=== PATIENT | female | born 1955 | race Caucasian/White ===

== ENCOUNTER 2024-04-10 20:09 | Inpatient (IN) | payer MEDICARE ==
[~2024-04-10] VITALS: Ht 170.2 cm; Wt 86.0 kg
[2024-04-10 20:50] VITALS: BP 124/58
[2024-04-10 21:00] LABS: BASO % 0.3 % (0.0-1.0); EOS # 0.1 10^3/uL (0.0-0.5); EOS % 1.4 % (0.0-3.0); HEMATOCRIT 41.2 % (36.0-47.0); HEMOGLOBIN 13.6 g/dl (12.0-15.5); LYMPH # 2.6 10^3/uL (1.5-5.0); LYMPH % 29.5 % (24.0-44.0); MEAN CORPUSCULAR HEMOGLOBIN 29.8 pg (27.0-33.0); MEAN CORPUSCULAR VOLUME 90.2 fl (80.0-96.0); MONO # 0.4 10^3/uL (0.0-0.8); MONO % 4.4 % (2.0-8.0); NEUTROPHILS # 5.5 10^3/uL (1.5-8.5); NEUTROPHILS % 64.1 % (36.0-66.0); PLATELET COUNT, AUTOMATED 268 10^3/uL (150-450); RED BLOOD COUNT 4.57 10^6/uL (4.00-5.40); WHITE BLOOD COUNT 8.7 10^3/uL (4.0-10.0)
[2024-04-10 21:18] LABS: INR 1.03; PARTIAL THROMBOPLASTIN TIME 21.3 SECONDS (24.8-34.2); PROTHROMBIN TIME 13.2 SECONDS (12.5-14.5)
[2024-04-10 21:26] LABS: BLOOD UREA NITROGEN 14 MG/DL (9-23); CARBON DIOXIDE LEVEL 26 MMOL/L (20-31); CHLORIDE LEVEL 107 MMOL/L (98-107); CPK CREATINE PHOSPHOKINASE 86 U/L (34-145); GLOMERULAR FILTRATION RATE > 60.0 (>39); GLUCOSE, FASTING 176 MG/DL (74-106); MB/CK RELATIVE INDEX 1.16 (< OR =4); POTASSIUM SERUM 3.8 MMOL/L (3.5-5.1); SODIUM LEVEL 139 MMOL/L (136-145)
[2024-04-11] MEDS ORDERED: MM S100C PO (00:55)
[2024-04-11] MEDS ORDERED: METO1TAB87 PO (00:55)
[2024-04-11] MEDS ORDERED: VITA200010 PO (00:55)
[2024-04-11] MEDS ORDERED: FLEC25TA PO (00:55)
[2024-04-11] MEDS ORDERED: LISI20TA33 PO (00:55)
[2024-04-11] MEDS ORDERED: LEVO125T4 PO (00:55)
[2024-04-11] MEDS ORDERED: ASPI81CH33 PO (00:55)
[2024-04-11] MEDS: ASPIRIN 81MG CHEW TABLET PO ONE (00:59)
[2024-04-11] MEDS ORDERED: SYNT125T PO (03:17)
[2024-04-11] MEDS ORDERED: DOCU100C16 PO (03:17)
[2024-04-11] MEDS ORDERED: FLEC50HA PO (03:17)
[2024-04-11] MEDS ORDERED: ASPI-615 PO (03:17)
[2024-04-11] MEDS ORDERED: METO25TA4 PO (03:17)
[2024-04-11] MEDS ORDERED: MED REC IN PROGRESS XX SCH (03:25)
[2024-04-11 08:31] LABS: HEMOGLOBIN A1c 5.3 % (4.0-6.0)
[2024-04-11] MEDS: NS 1,000 ML IV ONE (08:46)
[2024-04-11 09:04] LABS: CHOLESTEROL LEVEL 186 MG/DL (<200); CHOLESTEROL RISK RATIO 2.91 (<5); CK-MB VALUE MASS < 1.0 NG/ML (<3.6); CPK CREATINE PHOSPHOKINASE 63 U/L (34-145); HDL CHOLESTEROL 63.9 MG/DL (>40); LDL CHOLESTEROL 108.3 MG/DL (<100); MB/CK RELATIVE INDEX 1.58 (< OR =4); NON-HDL-C 122.1 MG/DL; TRIGLYCERIDES LEVEL 69 MG/DL (<150)
[2024-04-11] MEDS: ASPIRIN 81MG ENTERIC TABLET PO SCH (09:04)
[2024-04-11] MEDS: DOCUSATE SODIUM 100MG CAPSULE PO SCH (09:04)
[2024-04-11] MEDS: METOPROLOL TART 12.5 MG PER 1/2 TAB PO SCH (09:05)
[2024-04-11 09:06] LABS: FREE T3 2.7 PG/ML (2.3-4.2); FREE T4 1.12 NG/DL (0.89-1.76)
[2024-04-11] MEDS: FLECAINIDE 50MG TABLET PO SCH (10:20)
[2024-04-11] MEDS ORDERED: HOME MED LIST COMPLETE! XX SCH (10:55)
[2024-04-11 11:45] VITALS: BP 151/70; TEMP 98.2; O2SAT 99
[2024-04-11 20:00] VITALS: BP 158/73; TEMP 97; O2SAT 98
[2024-04-11] MEDS ORDERED: ACETAMINOPHEN TAB 650MG DOSE (2X325MG) PO PRN (22:05)
[2024-04-11] MEDS: KETOROLAC 30 MG/ML 1ML VIAL IV ONE (22:11)
[2024-04-11] MEDS: ENOXAPARIN 40MG/0.4ML SYRINGE (J1650 PER 10MG) SC SCH (22:13)
[2024-04-12 04:00] VITALS: BP 131/66; TEMP 97.3; O2SAT 96
[2024-04-12 05:56] LABS: HEMATOCRIT 39.3 % (36.0-47.0); HEMOGLOBIN 12.8 g/dl (12.0-15.5); MEAN CORPUSCULAR HEMOGLOBIN 29.5 pg (27.0-33.0); MEAN CORPUSCULAR HGB CONC 32.6 g/dl (32.0-36.5); MEAN CORPUSCULAR VOLUME 90.6 fl (80.0-96.0); PLATELET COUNT, AUTOMATED 240 10^3/uL (150-450); RED BLOOD COUNT 4.34 10^6/uL (4.00-5.40); WHITE BLOOD COUNT 7.3 10^3/uL (4.0-10.0)
[2024-04-12] MEDS: LEVOTHYROXINE 125MCG TABLET (0.125MG) PO SCH (06:16)
[2024-04-12 06:24] LABS: ALBUMIN 3.1 G/DL (3.2-5.2); ALKALINE PHOSPHATASE 91 U/L (46-116); ALT/SGPT 12 U/L (7.0-40); AST/SGOT < 8 U/L (<34); BILIRUBIN,TOTAL 0.4 MG/DL (0.3-1.2); BLOOD UREA NITROGEN 12 MG/DL (9-23); CALCIUM LEVEL 9.1 MG/DL (8.3-10.6); CARBON DIOXIDE LEVEL 27 MMOL/L (20-31); CHLORIDE LEVEL 111 MMOL/L (98-107); CREATININE FOR GFR 0.73 MG/DL (0.55-1.30); GLOMERULAR FILTRATION RATE > 60.0 (>39); GLUCOSE, FASTING 87 MG/DL (74-106); POTASSIUM SERUM 4.4 MMOL/L (3.5-5.1); SODIUM LEVEL 142 MMOL/L (136-145); TOTAL PROTEIN 5.4 G/DL (5.7-8.2)
[2024-04-12 08:29] VITALS: BP 131/65
[2024-04-12] MEDS ORDERED: ANUSHCSU PR (08:55)
[2024-04-12 09:52] LABS: HEMATOCRIT 40.5 % (36.0-47.0); HEMOGLOBIN 13.2 g/dl (12.0-15.5)
[2024-04-12] MEDS: GASTROGRAFIN SOLUTION 30ML PO SCH (10:15)
[2024-04-12 12:00] VITALS: BP 132/65; TEMP 97.2; O2SAT 97
[2024-04-12] MEDS: ANUSOL HC 25MG SUPP PR SCH (12:39)
[2024-04-12] MEDS: ANUSOL HC CREAM 30GM TOP SCH (12:39)
[2024-04-12] MEDS ORDERED: AMOX875T2 PO (12:59)
[2024-04-12] MEDS ORDERED: metroNIDAZOLE (FLAGYL) 500MG TABLET PO ONE (13:00)
[2024-04-12] MEDS ORDERED: CIPROFLOXACIN 500MG TABLET PO ONE (13:00)
[2024-04-12 13:25] LABS: HEMATOCRIT 39.8 % (36.0-47.0)
[2024-04-12] MEDS: AUGMENTIN 875 MG TAB PO ONE (14:01)
== END 2024-04-12 14:10 | disposition home or self-care (01) | DRG 312 ==
LOC: M ED 20:09 → M ED INP 04-11 01:32 → M MSPAV 04-11 11:46
PROVIDERS: ADMIT Internal Medicine; ATTEND General Practice
PROC: B246ZZZ Ultrasonography of Right and Left Heart (ICD-10-PCS; principal; 2024-04-12)
DX: R55 Syncope and collapse (principal); I48.91 Unspecified atrial fibrillation; I10 Essential (primary) hypertension; E78.5 Hyperlipidemia, unspecified; Z90.49 Acquired absence of other specified parts of digestive tract; Z79.82 Long term (current) use of aspirin; Z79.890 Hormone replacement therapy; Z79.899 Other long term (current) drug therapy